=== PATIENT | female | born 1960 | race Hispanic/Latino ===

== ENCOUNTER 2018-10-19 22:13 | Emergency (ER) | payer BC ==
[2018-10-19 22:19] VITALS: BMI 23.2
[2018-10-19 22:22] VITALS: BP 127/79; PULSE 82; RESP 16; TEMP 98.5; O2SAT 98
[2018-10-19] MEDS ORDERED: Tdap Vaccine 0.5 ml Vial (10-64 yrs) IM ONE ×2 (22:39→22:45)
--- NOTE | 2018-10-19 22:43 | ED PDOC ---
HPI: General Adult Time Seen by Provider: 10/19/18 22:40 Chief Complaint (Nursing): Bite Chief Complaint (Provider): insect bite History Per: Patient (57 y/o female here for evaluation of spider bite involving right hand index finger. States she was trying to kill insect when she realized it stung her . Brought with her today spider in zip lock bag.) Past Medical History Reviewed: Historical Data, Nursing Documentation, Vital Signs Vital Signs: Last Vital Signs Temp 98.5 F 10/19/18 22:19 Pulse 82 10/19/18 22:19 Resp 16 10/19/18 22:19 BP 127/79 10/19/18 22:19 Pulse Ox 98 10/19/18 22:19 - Medical History PMH: Anxiety, Hypercholesterolemia, Migraine, Mitral Valve Prolapse Denies: Alzheimer's Disease, Bipolar Disorder, Cardia Arrhythmia, CHF, Dementia, Depression, Fibromyalgia, HTN, Multiple Sclerosis, Paranoia, Parkinson's Disease, Peripheral Edema, Post Traumatic Stress Disorder, Chronic Kidney Disease, Schizophrenia, Seizures, TIA - Surgical History Surgical History: Appendectomy Denies: CABG, Carotid Endarterectomy, Cholecystectomy, Coronary Stent, End oscopy, Pacemaker, Tonsillectomy - Family History Family History: States: No Known Family Hx - Home Medications Home Medications: Ambulatory Orders Medication Instructions Recorded Acetaminophen/Codeine 1 tab PO Q4H 03/26/14 [Tylenol/Codeine 300 MG/30 MG] Alprazolam [Xanax Xr] 2 mg PO HS 03/26/14 Aspirin 81 mg PO DAILY 03/26/14 DULoxetine [Cymbalta] 60 mg PO QAM 03/26/14 Simvastatin 5 mg PO HS 03/26/14 Topiramate [Topamax] 25 mg PO HS 03/26/14 DiphenhydrAMINE [Benadryl] 1 - 2 tab PO Q6 PRN #24 cap 10/19/18 - Allergies Allergies/Adverse Reactions: Allergies Allergy/AdvReac Type Severity Reaction Status Date / Time lidocaine Allergy RASH Verified 10/19/18 22:19 Review of Systems ROS Statement: Except As Marked, All Systems Reviewed And Found Negative Physical Exam - Reviewed Nursing Documentation Reviewed: Yes Vital Signs Reviewed: Yes - Physical Exam Appears: Positive for: Well, Non-toxic, No Acute Distress Head Exam: Positive for: ATRAUMATIC, NORMAL INSPECTION, NORMOCEPHALIC Skin: Positive for: Normal Color, Warm, DRY Eye Exam: Positive for: EOMI, Normal appearance, PERRL ENT: Positive for: Normal ENT Inspection Neck: Positive for: Normal, Painless ROM Cardiovascular/Chest: Positive for: Regular Rate, Rhythm Respiratory: Positive for: CNT, Normal Breath Sounds Gastrointestinal/Abdominal: Positive for: Normal Exam, Soft Back: Positive for: Normal Inspection Extremity: Positive for: Normal ROM, Other (mild erythema noted distal tip of index finger of right hand.) Neurological/Psych: Positive for: Awake, Alert, Normal Tone - ECG O2 Sat by Pulse Oximetry: 98 - Progress ED Course And Treament: tdap 0.5ml IM x 1 dose Ice applied to wound Disposition - Clinical Impression Clinical Impression: Insect bite - wound - Patient ED Disposition Is Patient to be Admitted: No - Disposition Disposition: Routine/Home Disposition Time: 22:42 Condition: FAIR Prescriptions: DiphenhydrAMINE [Benadryl] 1 - 2 tab PO Q6 PRN #24 cap PRN Reason: Itching / Pruritus Instructions: Insect Bites and Stings (DC)
== END 2018-10-19 23:07 | disposition home or self-care (01) ==
LOC: H.ER 22:13
DX: S60.460A Insect bite (nonvenomous) of right index finger, initial encounter (principal); W57.XXXA Bitten or stung by nonvenomous insect and other nonvenomous arthropods, initial encounter; Y92.89 Other specified places as the place of occurrence of the external cause; E78.00 Pure hypercholesterolemia, unspecified